=== PATIENT | female | born 1995 | race Caucasian/White ===

== ENCOUNTER 2017-02-03 12:30 | Inpatient (IN) | payer OTHER ==
[~2017-02-03] VITALS: Ht 154.9 cm; Wt 88.6 kg
[2017-02-03 13:15] VITALS: Ht 154.9 cm; Wt 88.6 kg
[2017-02-03] MEDS ORDERED: PRENAT PO (13:18)
[2017-02-03 13:29] LABS: ADD SCAN DIFF NO
[2017-02-03] MEDS ORDERED: MISOPROSTOL 200 MCG TAB PR PRN (13:30)
[2017-02-03] MEDS ORDERED: CARBOPROST 250 MCG INJ IM PRN (13:30)
[2017-02-03] MEDS ORDERED: OXYTOCIN 30 UNITS/LR 500 ML IV SCH (13:30)
[2017-02-03] MEDS ORDERED: CLINDAMYCIN 900 MG/D5W (PMX) 50 ML IV SCH (13:30)
[2017-02-03] MEDS: LACTATED RINGER'S 1,000 ML IV SCH ×2 (13:30→16:11)
[2017-02-03] MEDS ORDERED: OXYTOCIN 30 UNITS/LR 500 ML IV PRN (13:30)
[2017-02-03] MEDS ORDERED: METHYLERGONOVINE 0.2 MG INJ IM PRN (13:30)
[2017-02-03 13:44] LABS: BASOPHILS % 0.3 % (0.0-2.0); EOSINOPHILS # 0.1 10^3/ul (0.0-0.5); EOSINOPHILS % 0.7 % (0.0-7.0); HEMATOCRIT 36.2 % (37.0-47.0); HEMOGLOBIN 11.4 g/dl (12.0-16.0); LYMPHOCYTES # 1.6 10^3/ul (0.8-2.9); LYMPHOCYTES % 12.4 % (18.0-55.0); MEAN CORPUSCULAR HEMOGLOBIN 24.8 pg (29.0-33.0); MEAN CORPUSCULAR HGB CONC 31.5 g/dl (32.0-37.0); MEAN CORPUSCULAR VOLUME 78.7 fl (72.0-104.0); MEAN PLATELET VOLUME 11.2 fl (7.4-10.4); MONOCYTE # 1.2 10^3/ul (0.3-0.9); MONOCYTES % 8.8 % (0.0-13.0); NEUTROPHIL # 9.9 10^3/ul (1.6-7.5); NEUTROPHILS % 76.1 % (30.0-74.0); PLATELET COUNT 301 10^3/UL (140-415); RED CELL DISTRIBUTION WIDTH 14.1 % (11.5-14.5)
[2017-02-03 13:47] LABS: INR 0.9; PROTIME 12.1 Sec (12.2-14.2); PT RATIO 0.9
[2017-02-03 13:48] LABS: PARTIAL THROMBOPLASTIN TIME 29.2 Sec (25.0-35.0)
[2017-02-03] MEDS ORDERED: CEFAZOLIN 2 GM/50 ML (PMX) 50 ML IVPB ONE (14:30)
--- NOTE | 2017-02-03 19:58 | PREOPHP ---
DATE OF ADMISSION: 02/03/2017 HISTORY OF PRESENT ILLNESS: A 21-year-old female 2, para 1, estimated date of delivery 03/2017, at 42-ggfpw-xqp-4 days, last was seen in perinatology clinic for followup ultrasound. Ultra sound revealed intrauterine growth restriction and breech presentation. Recommendation of perinatol ogist is to deliver the patient by primary section at this time. PAST MEDICAL HISTORY: Unremarkable. PAST SURGICAL HISTORY: Unremarkable. ALLERGIES: PENICILLIN. FAMILY HISTORY: Noncontributory. PHYSICAL EXAMINATION VITAL SIGNS: The patient is afebrile. Vital signs stable. HEAD, NECK AND CHEST: Within normal limits. ABDOMEN: Soft, nontender and gravid. EXTREMITIES: Within normal limits. NEUROLOGIC: Within normal limits. PELVIC: On external monitoring contractions are noted. IMPRESSION: at 11-lcsfg-muq-4 days, with intrauterine growth restriction, breech presenta tion. PLAN: Delivery by primary section. Risks, benefits and alternatives of the procedure were explained to the patient. The patient said she understood and gave informed consent for the proced ure. Dictated By: ESTRADA NAPOLES/NAGA Conf#: [id number] DID#: [id number]
[2017-02-03] MEDS ORDERED: FENTAnyl 50 MCG/ML VIAL ONE (20:32)
[2017-02-03] MEDS ORDERED: morphine SULFATE/PF (10 MG/10 ML) INJ ONE (20:32)
[2017-02-03] MEDS ORDERED: PHENYLephrine (100 MCG/ML) 5ML SYG ONE (20:39)
[2017-02-03] MEDS ORDERED: NALOXONE (0.4 MG/ML) INJ IV PRN (21:00)
[2017-02-03] MEDS ORDERED: HYDROmorphONE 1 MG/ML SYG IV PRN ×2 (21:00)
[2017-02-03] MEDS ORDERED: ONDANSETRON 4 MG INJ IV PRN (21:00)
[2017-02-03] MEDS ORDERED: ZOLPIDEM 5 MG TAB PO PRN (21:00)
[2017-02-03] MEDS ORDERED: ONDANSETRON 4 MG INJ ONE (21:05)
[2017-02-03] MEDS ORDERED: DEXAMETHASONE 4 MG/ML 1 ML INJ ONE (21:05)
--- NOTE | 2017-02-03 22:01 | OPR ---
DATE OF OPERATION: 02/03/2017 PREOPERATIVE DIAGNOSES: at 37 weeks and 4 days with intrauterine growth restriction and b reech presentation. POSTOPERATIVE DIAGNOSES: at 37 weeks and 4 days with intrauterine growth restriction and breech presentation. OPERATION PERFORMED: Primary low transverse section. SURGEON: Estrada Preciado MD PUBLIC RELATIONS STUDIES DIRECTOR: Senait Keyes MD ANESTHESIA: Spinal. ANESTHESIOLOGIST: Dr. Choi PROCEDURE: The patient was brought to operating room, placed on operating table. After successful spinal anesthesia was given, the patient was placed in supine position. The area was prepared and d raped in usual sterile fashion. The spinal anesthesia was tested and was satisfactory. Using scalp el, Pfannenstiel incision was made about 2 fingerbreadths above the symphysis pubis. The incision w as carried down to fascia. The fascia was incised and extended bilaterally with Kyle scissors. Two Kochers were used to separate the fascia from the muscle. The muscle was dissected down to periton eum. The peritoneum was bluntly entered. Using scalpel, a small transverse incision was made in th e lower segment of the uterus. Upon entering the uterine cavity, bandage scissors were inserted to extend the incision bilaterally, curved up. Baby was delivered from right sacral anterior position. After suctioning clear of amniotic fluid, the baby was [facility]. Apgars were 8 and 9. The placenta was delivered without difficulty. The uterus was closed wit h #1 Monocryl continuous locked after assuring hemostasis. Both ovaries and tubes were inspected, a ll looked normal. The peritoneal cavity was irrigated with warm saline. The peritoneum was closed with 2-0 Vicryl continuous. The fascia was closed with #1 Vicryl continuous in 2 segments. The sub cutaneous tissue was reapproximated with 2-0 plain. The skin was closed with pascual. ESTIMATED BLOOD LOSS: 400 mL COMPLICATIONS: None. COUNTS: All counts were correct. Dictated By: ESTRADA PRECIADO MD GD/NTS Conf#: [id number] DID#: [id number]
--- NOTE | 2017-02-03 23:14 | NSTRPT ---
NST Information Datetime Report Generated by CPN: 02/03/2017 23:14 Datetime: 02/03/2017 11:00 NST Information EGA: 37.4 Test Number: 7 Time on Monitor: 02/03/2017 12:05 Time off Monitor: 02/03/2017 12:10 NST Duration (Min): 5 Reason for NST: IUGR Test and Monitor Explained: Monitor Explained; Test Explained; Verbalized Understanding; Breastfee ding Info Given Pulse: 92 Resp: 18 SBP: 142 DBP: 87 Test Evaluation NST Interventions: None Patient States Movement: Present Contraction Frequency: none FHR Baseline : 140 Comments: To Perinatology. [id number]. 10%. AC: 2%. s/d ratio: 2.44, BREECH. Dr Massey spoke with Dr Preciado, pt to have c/s for IUGR _ Breech today. 1210-Report called to Sidney Davis L_D, pt to L_D accomp by Sherie Electronically Signed By E-Signature: with User ID: [id number] Datetime: 01/28/2017 14:04 NST Information EGA: 36.5 Test Number: 6 Time on Monitor: 01/28/2017 14:14 Time off Monitor: 01/28/2017 14:47 NST Duration (Min): 33 Reason for NST: IUGR Test and Monitor Explained: Monitor Explained; Test Explained; Verbalized Understanding Pulse: 100 Resp: 17 SBP: 122 DBP: 61 Test Evaluation NST Interventions: PO Hydration; Food Given; Reposition Patient; Acoustic Stimulation Patient States Movement: Present Contraction Frequency: X1, denies FHR Baseline : 140 Variability: Moderate 6-25bpm Accelerations: 15X15 Decelerations: None FHR Category: Category I NST Results: Reactive Comments: PT FROM MAMI, ALIZA 9.8cm, cephalic S/D Ratio WNL. 1448-Pt Home undelivered with PTL precautions. Follow up NST appointment given. Fe bettie Kick Count instructions reviewed. Pt states understanding. No further questions asked at this ti me. Datetime: 01/21/2017 13:30 NST Information EGA: 35.5 NST Duration (Min): 42 Datetime: 01/18/2017 14:02 NST Information EGA: 35.2 NST Duration (Min): 24 Datetime: 01/14/2017 13:50 NST Information EGA: 34.5 NST Duration (Min): 24 Datetime: 01/11/2017 13:22 NST Information EGA: 34.2 NST Duration (Min): 40 Datetime: 01/04/2017 13:33 NST Information EGA: 33.2 Datetime: 01/04/2017 13:30 NST Duration (Min): 39
[2017-02-03] MEDS: KETOROLAC 30 MG INJ IV PRN (23:32)
[2017-02-04] MEDS: DIPHENHYDRAMINE 50 MG INJ IV PRN ×2 (00:07→10:47)
[2017-02-04 00:30] VITALS: BP 131/80; PULSE 94; RESP 19
[2017-02-04] MEDS ORDERED: MISOPROSTOL 200 MCG TAB PR PRN (01:00)
[2017-02-04] MEDS ORDERED: METHYLERGONOVINE 0.2 MG INJ IM PRN (01:00)
[2017-02-04] MEDS ORDERED: CARBOPROST 250 MCG INJ IM PRN (01:00)
[2017-02-04] MEDS ORDERED: OXYTOCIN 30 UNITS/LR 500 ML IV PRN (01:00)
[2017-02-04 01:30] VITALS: BP 122/72; PULSE 71; RESP 18
[2017-02-04] MEDS: LACTATED RINGER'S 1,000 ML IV SCH ×3 (02:38→18:48)
[2017-02-04 04:10] VITALS: BP 128/71; PULSE 78; RESP 19
[2017-02-04 06:54] LABS: ADD SCAN DIFF NO
[2017-02-04 07:01] LABS: BASOPHILS % 0.2 % (0.0-2.0); EOSINOPHILS % 0.1 % (0.0-7.0); HEMATOCRIT 33.1 % (37.0-47.0); HEMOGLOBIN 10.5 g/dl (12.0-16.0); LYMPHOCYTES # 1.7 10^3/ul (0.8-2.9); MEAN CORPUSCULAR HEMOGLOBIN 24.9 pg (29.0-33.0); MEAN CORPUSCULAR HGB CONC 31.7 g/dl (32.0-37.0); MEAN CORPUSCULAR VOLUME 78.4 fl (72.0-104.0); MONOCYTE # 1.4 10^3/ul (0.3-0.9); MONOCYTES % 7.6 % (0.0-13.0); NEUTROPHIL # 15.4 10^3/ul (1.6-7.5); NEUTROPHILS % 82.1 % (30.0-74.0); PLATELET COUNT 307 10^3/UL (140-415); RED BLOOD COUNT 4.22 10^6/ul (4.20-5.40); WHITE BLOOD COUNT 18.8 10^3/ul (4.8-10.8)
[2017-02-04 07:50] VITALS: BP 114/56; PULSE 83; RESP 16
[2017-02-04] MEDS: KETOROLAC 30 MG INJ IV PRN ×2 (08:40→16:17)
[2017-02-04 16:00] VITALS: BP 114/55; PULSE 89; RESP 16
[2017-02-04 19:20] VITALS: BP 125/73; PULSE 96; RESP 19
--- NOTE | 2017-02-04 20:27 | QN ---
Documentation Comment No complaint Afebrile VSS Abdomen soft POD #1 Stable Ambulate Advance diet. ESTRADA WATT MD Feb 04, 2017 20:27
[2017-02-04] MEDS: FERROUS SULFATE (EC) 325 MG TAB PO SCH (20:44)
[2017-02-04] MEDS: IBUPROFEN 800 MG TAB PO PRN (21:01)
[2017-02-05] MEDS: OXYCODONE/ACETAMINOPHEN (5/325) TAB PO PRN ×2 (00:22→10:25)
[2017-02-05] MEDS: LACTATED RINGER'S 1,000 ML IV SCH (00:40)
[2017-02-05 04:02] VITALS: BP 113/59; PULSE 79; RESP 19
[2017-02-05 07:50] VITALS: BP 111/68; PULSE 82; RESP 18
[2017-02-05 08:08] LABS: ADD SCAN DIFF NO
[2017-02-05 08:20] LABS: BASOPHILS % 0.4 % (0.0-2.0); EOSINOPHILS # 0.2 10^3/ul (0.0-0.5); EOSINOPHILS % 1.3 % (0.0-7.0); HEMATOCRIT 29.2 % (37.0-47.0); HEMOGLOBIN 9.1 g/dl (12.0-16.0); LYMPHOCYTES # 2.3 10^3/ul (0.8-2.9); LYMPHOCYTES % 20.4 % (18.0-55.0); MEAN CORPUSCULAR HEMOGLOBIN 24.8 pg (29.0-33.0); MEAN CORPUSCULAR HGB CONC 31.2 g/dl (32.0-37.0); MEAN CORPUSCULAR VOLUME 79.6 fl (72.0-104.0); MEAN PLATELET VOLUME 11.6 fl (7.4-10.4); MONOCYTE # 1.4 10^3/ul (0.3-0.9); MONOCYTES % 12.1 % (0.0-13.0); NEUTROPHIL # 7.4 10^3/ul (1.6-7.5); NEUTROPHILS % 65.3 % (30.0-74.0); PLATELET COUNT 248 10^3/UL (140-415); RED BLOOD COUNT 3.67 10^6/ul (4.20-5.40); RED CELL DISTRIBUTION WIDTH 14.5 % (11.5-14.5); WHITE BLOOD COUNT 11.4 10^3/ul (4.8-10.8)
[2017-02-05] MEDS: FERROUS SULFATE (EC) 325 MG TAB PO SCH ×2 (08:53→21:05)
--- NOTE | 2017-02-05 14:21 | NSTRPT ---
NST Information Datetime Report Generated by CPN: 02/05/2017 14:20 Datetime: 01/28/2017 14:04 Electronically Signed By E-Signature: with User ID: [id number]
[2017-02-05] MEDS: IBUPROFEN 800 MG TAB PO PRN (15:39)
[2017-02-05 16:00] VITALS: BP 129/68; PULSE 104; RESP 18
[2017-02-05] MEDS ORDERED: MAGNESIUM HYDROXIDE 30ML CUP PO ONE (16:30)
--- NOTE | 2017-02-05 19:12 | QN ---
Documentation Comment No complaint Afebrile VSS Abdomen soft POD #2 Stable Continue with present care. ESTRADA WATT MD Feb 05, 2017 19:12
[2017-02-05 19:40] VITALS: BP 128/83; PULSE 87; RESP 19
[2017-02-06] MEDS: OXYCODONE/ACETAMINOPHEN (5/325) TAB PO PRN ×2 (00:08→17:22)
[2017-02-06 04:00] VITALS: BP 114/61; RESP 19
[2017-02-06 08:30] VITALS: BP 140/74; PULSE 88; RESP 18
[2017-02-06] MEDS: FERROUS SULFATE (EC) 325 MG TAB PO SCH ×2 (09:50→20:45)
[2017-02-06] MEDS: IBUPROFEN 800 MG TAB PO PRN (12:14)
--- NOTE | 2017-02-06 14:14 | QN ---
Documentation Comment No complaint Afebrile VSS Abdomen soft POD #3 Stable Continue with present care. ESTRADA WATT MD Feb 06, 2017 14:14
[2017-02-06 16:00] VITALS: BP 133/72; PULSE 88; RESP 18
[2017-02-06 20:00] VITALS: BP 133/80; PULSE 75; RESP 18
[2017-02-07] MEDS: OXYCODONE/ACETAMINOPHEN (5/325) TAB PO PRN ×2 (00:24→13:23)
[2017-02-07] MEDS: IBUPROFEN 800 MG TAB PO PRN (01:12)
[2017-02-07 04:00] VITALS: BP 114/57; PULSE 76; RESP 18
[2017-02-07 08:45] VITALS: BP 129/80; PULSE 91; RESP 17
[2017-02-07] MEDS: FERROUS SULFATE (EC) 325 MG TAB PO SCH (13:22)
--- NOTE | 2017-02-08 09:03 | DS ---
DATE OF ADMISSION: 02/03/2017 DATE OF DISCHARGE: 02/07/2017 ADMITTING DIAGNOSIS: at term with intrauterine growth restriction and breech presentation . HISTORY: A 21-year-old female, 2, para 1 at admission, para 2 at time of discharge, at 37 w eeks and 4 days, was admitted for primary section due to breech presentation and intrauteri ne growth restriction. On 02/03/2017 after obtaining informed consent, the patient underwent a prim chanda low transverse section. Patient's operation was uncomplicated. Postoperatively, the p atient was given clear liquid diet, which was advanced to regular diet, which she tolerated well. T he patient discharged on postop day 4 after having had adequate bladder and bowel function. CONDITION ON DISCHARGE: Stable. DISCHARGE INSTRUCTIONS: DIET: Regular. ACTIVITIES: Pelvic rest and no strenuous activities. MEDICATIONS: 1. Motrin as needed for pain. 2. Continue with vitamins and ferrous sulfate. Follow up in clinic in 2 days. FINAL DIAGNOSES 1. Term , delivered by section. 2. Intrauterine growth restriction. 3. Breech presentation. 4. Mother with single liveborn. Dictated By: ESTRADA NAPOLES/NTS Conf#: [id number] DID#: [id number]
== END 2017-02-07 16:23 | disposition home or self-care (01) | DRG 765 ==
LOC: L-D 12:30 → PP1 02-04 00:15 → EDSTATUS 02-20 12:35
PROVIDERS: ADMIT Obstetrics & Gynecology; ATTEND Obstetrics & Gynecology
PROC: 10D00Z1 Extraction of Products of Conception, Low, Open Approach (ICD-10-PCS; principal; 2017-02-03 19:00)
DX: O32.1XX0 Maternal care for breech presentation, not applicable or unspecified (principal); O36.5930 Maternal care for other known or suspected poor fetal growth, third trimester, not applicable or unspecified; Z3A.37 37 weeks gestation of pregnancy; Z37.0 Single live birth
CPT/HCPCS: 85025; 85610; 85730; 86592; 86850; 86900; 86901; 87340; 88307; 94760; 99464; J0690; J1100; J1170; J1200; J1885; J2210; J2274; J2370; J2405; J2590; J3010; J7120